=== PATIENT | male | born 1930 | race Hispanic/Latino ===

== ENCOUNTER 2017-05-12 21:37 | Emergency (ER) | payer MEDICARE, OTHER ==
[2017-05-12 21:52] VITALS: RESP 18; TEMP 97.5; O2SAT 99
--- NOTE | 2017-05-12 22:50 | ED PDOC ---
Arrival/HPI - General Time Seen by Provider: 05/12/17 21:53 Historian: Patient, Spouse - History of Present Illness Narrative History of Present Illness (Text): you were treated in the ED today for having parkinson's, having progressive forgetfulness, and you got out of the house and got lost and brought by the authorities and you were otherwise without any head injury/neck pain/fever/ nausea/vomiting/headache/dizziness/difficulty breathing/chest pain/abdomen pain/ numbness/tingling/loss of limb function/thoughts to harm yourself or others or hallucinations. you were sitting up, comfortable, alert/oriented to your baseline of name/location but not year which your /family confirmed, good strength/sensation, no abdomen tenderness, pink skin, no fever temp 97.5, stable heart rate 80, stable breathing rate 18, excellent oxygen level 99% room air, elevated blood pressure 147/78 which we recommend followup primary care 2- 3 days repeat and determine further treatment, observation done in the ED, counselled to complete a labwork-up, radiology work-up, ECG but you and your family wanted to go home and cautioned for missed diagnosis/complications/ but you stated you will followup with your primary care physician 2 days, and you went home with and family. 1. recommend followup primary care 1-2 days to determine further care, referral to neurology clinic. 2. if any worsening pain, fever, chills, nausea, vomiting, any medical condition then return to the ED. 05/12/17 22:50 05/12/17 22:50 Time/Duration: 1-3 hours Symptom Onset: Gradual Symptom Course: Improving Activities at Onset: Rest Context: Walking Past Medical History - Provider Review Nursing Documentation Reviewed: Yes - Travel History Have you recently traveled outside [place] w/in the past 3 mons?: No Family/Social History - Physician Review Nursing Documentation Reviewed: Yes Family/Social History: No Known Family HX Review of Systems - Review of Systems Constitutional: Normal Eyes: Normal ENT: Normal Respiratory: Normal Cardiovascular: Normal Gastrointestinal: Normal Genitourinary Male: Normal Musculoskeletal: Normal Skin: Normal Neurological: Other (forgetfullness) Endocrine: Normal Hemo/Lymphatic: Normal Psychiatric: Normal Physical Exam Vital Signs Reviewed: Yes Vital Signs Temp Pulse Resp BP Pulse Ox 05/12/17 21:51 97.5 F L 80 18 147/70 99 Temperature: Afebrile Blood Pressure: Hypertensive Pulse: Regular Respiratory Rate: Normal Appearance: Positive for: Well-Appearing, Non-Toxic, Comfortable Pain Distress: None Mental Status: Positive for: other (alert to name/location but stated year [birth year] and family stated this is baseline) - Systems Exam Head: Present: Atraumatic, Normocephalic Pupils: Present: PERRL Extroacular Muscles: Present: EOMI Conjunctiva: Present: Normal Ears: Present: Normal Mouth: Present: Moist Mucous Membranes Pharnyx: Present: Normal Nose (External): Present: Atraumatic Nose (Internal): Present: Normal Inspection Neck: Present: Normal Range of Motion, Other Respiratory/Chest: Present: Clear to Auscultation, Good Air Exchange Cardiovascular: Present: Regular Rate and Rhythm Abdomen: No: Tenderness, Distention, Normal Bowel Sounds, Peritoneal Signs, Rebound, Guarding, McBurney's Point Tender, Rovsing's Sign Present, Hernias, Feeding Tubes, Ostomy Tubes, Mass/Organomegaly, Scars, Other Back: Present: Normal Inspection, Other (no c-t-l spinal or paraspinal tenderness) Upper Extremity: Present: Normal Inspection Lower Extremity: Present: Normal Inspection Neurological: Present: GCS=15, CN II-XII Intact, Speech Normal, Motor Func Grossly Intact Skin: Present: Warm, Normal Color Psychiatric: Present: Alert, Normal Insight, Normal Concentration, Other ( baseline mental status) Medical Decision Making ED Course and Treatment: you were treated in the ED today for having parkinson's, having progressive forgetfulness, and you got out of the house and got lost and brought by the authorities and you were otherwise without any head injury/neck pain/fever/ nausea/vomiting/headache/dizziness/difficulty breathing/chest pain/abdomen pain/ numbness/tingling/loss of limb function/thoughts to harm yourself or others or hallucinations. you were sitting up, comfortable, alert/oriented to your baseline of name/location but not year which your /family confirmed, good strength/sensation, no abdomen tenderness, laughing/joking with family, pink skin, no fever temp 97.5, stable heart rate 80, stable breathing rate 18, excellent oxygen level 99% room air, elevated blood pressure 147/78 which we recommend followup primary care 2-3 days repeat and determine further treatment , observation done in the ED, counselled to complete a labwork-up, radiology work-up, ECG but you and your family wanted to go home and cautioned for missed diagnosis/complications/ but you stated you will followup with your primary care physician 2 days, and you went home with and family. 1. recommend followup primary care 1-2 days to determine further care, referral to neurology clinic. 2. if any worsening pain, fever, chills, nausea, vomiting, any medical condition then return to the ED. 05/12/17 22:55 Reassessment Condition: Improved Disposition/Present on Arrival - Present on Arrival Any Indicators Present on Arrival: No - Disposition Have Diagnosis and Disposition been Completed?: Yes Diagnosis: Forgetfulness Disposition: HOME/ ROUTINE Disposition Time: 22:56 Patient Plan: Discharge Condition: IMPROVED Additional Instructions: you were treated in the ED today for having parkinson's, having progressive forgetfulness, and you got out of the house and got lost and brought by the authorities and you were otherwise without any head injury/neck pain/fever/ nausea/vomiting/headache/dizziness/difficulty breathing/chest pain/abdomen pain/ numbness/tingling/loss of limb function/thoughts to harm yourself or others or hallucinations. you were sitting up, comfortable, alert/oriented to your baseline of name/location but not year which your /family confirmed, good strength/sensation, no abdomen tenderness, laughing/joking with family, pink skin, no fever temp 97.5, stable heart rate 80, stable breathing rate 18, excellent oxygen level 99% room air, elevated blood pressure 147/78 which we recommend followup primary care 2-3 days repeat and determine further treatment , observation done in the ED, counselled to complete a labwork-up, radiology work-up, ECG but you and your family wanted to go home and cautioned for missed diagnosis/complications/ but you stated you will followup with your primary care physician 2 days, and you went home with and family. 1. recommend followup primary care 1-2 days to determine further care, referral to neurology clinic. 2. if any worsening pain, fever, chills, nausea, vomiting, any medical condition then return to the ED. Referrals: Silvia Oshea, [Primary Care Provider] - Follow up with primary
[2017-05-13 03:45] VITALS: BP 137/70; PULSE 78
== END 2017-05-12 23:15 | disposition home or self-care (01) ==
LOC: ED 21:37
DX: R41.82 Altered mental status, unspecified (principal); G20 Parkinson's disease

== ENCOUNTER 2017-09-28 09:06 | Observation (INO) | payer MEDICARE, OTHER ==
[2017-09-28 09:09] VITALS: BMI 20.3
[2017-09-28] MEDS ORDERED: Sodium Chloride 0.9% 1,000 ML IV STA (09:35)
--- NOTE | 2017-09-28 09:51 | ED PDOC ---
Arrival/HPI - General Historian: Patient - History of Present Illness Time/Duration: < week Symptom Onset: Gradual Symptom Course: Unchanged Context: Home - General Chief Complaint: Weakness/Neurological Deficit Time Seen by Provider: 09/28/17 09:07 - History of Present Illness Narrative History of Present Illness (Text): 09/28/17 09:33 Pt is an 86 yo M with PMH of HTN, CAD s/p 2 stents, hypothyroidism, Parkinson's , dementia, DM, and urinary incontinence sent to ED by PMD for lethargy. Patient is poor historian and only oriented to self. Patient's at bedside provided history. She states that over the 4-5 days he has had poor urine output. PMD was contacted and patient was prescribed ciprofloxacin, which he completed, but symptoms did not resolve. At baseline, patient is able to ambulate and converse with some limitations. However, patient has been less talkative over the last few days. ROS limited due to patient's current mental status. PMD: Nitin Singer) Past Medical History - Provider Review Nursing Documentation Reviewed: Yes - Infectious Disease Hx of Infectious Diseases: None - Cardiac Hx Cardiac Disorders: Yes Hx Hypertension: Yes - Pulmonary Hx Respiratory Disorders: No - Neurological Hx Neurological Disorder: Yes Hx Parkinson's Disease: Yes - HEENT Hx HEENT Disorder: No - Renal Hx Renal Disorder: No - Endocrine/Metabolic Hx Endocrine Disorders: Yes Hx Diabetes Mellitus Type 2: Yes - Hematological/Oncological Hx Blood Disorders: No - Integumentary Hx Dermatological Disorder: No - Musculoskeletal/Rheumatological Hx Musculoskeletal Disorders: Yes Hx Falls: Yes Hx Unsteady Gait: Yes - Gastrointestinal Hx Gastrointestinal Disorders: Yes Hx Gall Bladder Disease: Yes - Genitourinary/Gynecological Hx Genitourinary Disorders: Yes Hx Urinary Tract Infection: Yes - Psychiatric Hx Psychophysiologic Disorder: No Hx Substance Use: No - Surgical History Hx Cholecystectomy: Yes Family/Social History - Physician Review Nursing Documentation Reviewed: Yes Family/Social History: No Known Family HX Smoking Status: Unknown If Ever Smoked Hx Alcohol Use: No Hx Substance Use: No Allergies/Home Meds Allergies/Adverse Reactions: Allergies No Known Allergies Allergy (Verified 09/28/17 09:24) Home Medications: Home Meds Medication Instructions Recorded Confirmed Aspirin [Aspirin Chewable] 81 mg PO DAILY 09/28/17 09/28/17 Carbidopa/Levodopa 1 tab PO TID 09/28/17 09/28/17 [Carbidopa-Levodopa 25-100 Tab] Clonazepam 0.5 mg PO BID 09/28/17 09/28/17 Donepezil [Aricept] 10 mg PO DAILY 09/28/17 09/28/17 Haloperidol [Haldol] 0.5 mg PO DAILY 09/28/17 09/28/17 Levothyroxine [Synthroid] 0.075 mg PO DAILY 09/28/17 09/28/17 Losartan [Cozaar] 50 mg PO DAILY 09/28/17 09/28/17 Memantine [Namenda] 10 mg PO BID 09/28/17 09/28/17 Omeprazole Magnesium [Prilosec] 20 mg PO DAILY 09/28/17 09/28/17 Oxybutynin [Oxybutynin Chloride] 5 mg PO BID 09/28/17 09/28/17 Tamsulosin [Flomax] 0.4 mg PO DAILY 09/28/17 09/28/17 metFORMIN [glucOPHAGE] 500 mg PO BID 09/28/17 09/28/17 Review of Systems - Review of Systems Systems not reviewed;Unavailable: Altered Mental Status Physical Exam - Physical Exam Physical Exam Limitations: Altered Mental Status Vital Signs Reviewed: Yes Temperature: Afebrile Blood Pressure: Normal Pulse: Regular Respiratory Rate: Normal Appearance: Positive for: Ill-Appearing, Cachectic Pain Distress: None Mental Status: Positive for: Confused, Lethargic - Systems Exam Head: Present: Atraumatic, Normocephalic Conjunctiva: Present: Normal Mouth: No: Moist Mucous Membranes (dry) Neck: Present: Trachea Midline. No: MIDLINE TENDERNESS, Paraspinal Tenderness Respiratory/Chest: Present: Clear to Auscultation, Good Air Exchange. No: Respiratory Distress, Accessory Muscle Use, Wheezes, Rales, Rhonchi Cardiovascular: Present: Regular Rate and Rhythm, Normal S1, S2. No: Murmurs Abdomen: No: Tenderness, Distention, Peritoneal Signs, Rebound, Guarding Back: Present: Normal Inspection Upper Extremity: Present: Normal Inspection. No: Cyanosis, Edema Lower Extremity: Present: Normal Inspection. No: Edema Neurological: No: GCS=15 (12), Speech Normal Skin: Present: Warm, Dry, Normal Color, Other (poor skin turgor). No: Rashes Psychiatric: Present: Alert, Normal Insight, Normal Concentration. No: Oriented x 3 (to self only) Vital Signs Temp Pulse Resp BP Pulse Ox 09/28/17 12:22 63 16 113/69 99 09/28/17 09:18 98 F 66 18 127/63 97 Medical Decision Making ED Course and Treatment: 09/28/17 09:54 86 yo M presents with lethargy. Plan: - CBC, CMP - Coags - Cardiac ISO - Cultures - VBG shock - UA - EKG - CXR - Head CT - IVF - Reassess and disposition 09/28/17 09:55 EKG reviewed shows rate of 66, sinus rhythm with 1st degree AV block. 09/28/17 10:22 Chest X-ray Impression: Mild bibasilar atelectasis. 09/28/17 11:[address] without contrast Impression: No acute intracranial hemorrhage. Mild chronic white matter ischemic changes. Note that the possibility of a small hyperacute infarct cannot be excluded. Clinical correlation recommended. Moderate central volume loss. Labwork and imaging grossly normal. Case discussed with Dr. Griffin, who requests overnight observation under his service due to altered mental status. Patient admitted for observation to med/surg. (Nitin Nicolas) 09/28/17 14:31 pts sent in by pmd for eval for ams. labs ct neg. ua neg. pmd requests obs. vitals stable pt dni dnr (Michael Braun) - Lab Interpretations Lab Results: 09/28/17 10:00 09/28/17 10:00 Lab Results 09/28/17 10:00: pO2 42, VBG pH 7.34, VBG pCO2 60.0, VBG HCO3 32.4 H, VBG Total CO2 34.2 H, VBG O2 Sat (Calc) 83.4 H, VBG Base Excess 4.8 H, VBG Potassium 3.7, Sodium 140.0, Chloride 105.0, Glucose 94, Lactate 0.9, FiO2 21.0, Venous Blood Potassium 3.7 09/28/17 10:00: PT 14.4 H, INR 1.25 H, APTT 31.5 09/28/17 10:00: Sodium 143, Chloride 104, Potassium 3.9, Carbon Dioxide 30, Anion Gap 13, BUN 15, Creatinine 0.8, Est GFR ( Amer) > 60, Est GFR (Non- Af Amer) > 60, Random Glucose 96, Calcium 9.1, Magnesium 2.1, Total Bilirubin 0.9, AST 20, ALT 15, Alkaline Phosphatase 55, Lactate Dehydrogenase 327 L, Total Creatine Kinase 40, Troponin I < 0.01, Total Protein 6.3, Albumin 3.6, Globulin 2.7, Albumin/Globulin Ratio 1.3 09/28/17 10:00: WBC 6.3, RBC 4.26, Hgb 13.0 L, Hct 39.6 L, MCV 93.0, MCH 30.5, MCHC 32.8, RDW 14.0, Plt Count 200, MPV 8.8, Gran % 66.2, Lymph % (Auto) 24.1, [place] % (Auto) 7.0 H, Eos % (Auto) 2.5, Baso % (Auto) 0.2, Gran # 4.17, Lymph # ( Auto) 1.5, [place] # (Auto) 0.4, Eos # (Auto) 0.2, Baso # (Auto) 0.01 09/28/17 09:33: POC Glucose (mg/dL) 90 09/28/17 09:26: Urine Color Yellow, Urine Appearance Clear, Urine pH 6.0, Ur Specific [place] 1.025, Urine Protein Trace H, Urine Glucose (UA) Negative, Urine Ketones Trace H, Urine Blood Negative, Urine Nitrate Negative, Urine Bilirubin Negative, Urine Urobilinogen 1.0 H, Ur Leukocyte Esterase Negative, Urine RBC Negative, Urine WBC 2 - 5, Ur Epithelial Cells 3 - 4, Urine Bacteria Few - RAD Interpretation Radiology Orders: 09/28/17 09:28 CHEST PORTABLE [RAD] Stat 09/28/17 09:36 HEAD W/O CONTRAST [CT] Stat - Medication Orders Current Medication Orders: Aspirin (Aspirin Chewable) 81 mg PO DAILY [facility] Carbidopa/Levodopa (Sinemet) 1 tab PO 0800,1000,1400,1600 [facility] Last Admin: 09/28/17 13:40 Dose: 1 tab Donepezil HCl (Aricept) 10 mg PO HS [facility] Sodium Chloride (Sodium Chloride 0.9%) 1,000 mls @ 60 mls/hr IV .[id number] [facility] Last Admin: 09/28/17 13:40 Dose: 60 mls/hr eMAR Start Stop Document 09/28/17 13:40 RV (Rec: 09/28/17 13:40 RV [id number]) Intravenous Solution Start Date 09/28/17 Start Time 13:40 Levothyroxine Sodium (Synthroid) 75 mcg PO 0600 [facility] Losartan Potassium (Cozaar) 50 mg PO DAILY [facility] Memantine (Namenda) 10 mg PO BID [facility] Metformin HCl (Glucophage) 500 mg PO BID [facility] Pantoprazole Sodium (Protonix Inj) 40 mg IVP DAILY [facility] Tamsulosin HCl (Flomax) 0.4 mg PO DAILY [facility] Discontinued Medications Carbidopa/Levodopa (Sinemet) 1 tab PO STAT STA Stop: 09/28/17 11:14 Last Admin: 09/28/17 11:51 Dose: 1 tab Sodium Chloride (Sodium Chloride 0.9%) 1,000 mls @ 999 mls/hr IV .Q1H1M STA Stop: 09/28/17 10:35 Last Admin: 09/28/17 09:47 Dose: 999 mls/hr eMAR Start Stop Document 09/28/17 09:47 KIN (Rec: 09/28/17 09:49 [id number] Intravenous Solution Start Date 09/28/17 Start Time 09:48 End Date 09/28/17 End time 10:48 Total Infusion Time 60 Sodium Chloride (Sodium Chloride 0.9%) 1,000 mls @ 100 mls/hr IV .Q10H [facility] Last Admin: 09/28/17 11:52 Dose: 100 mls/hr eMAR Start Stop Document 09/28/17 11:52 KIN (Rec: 09/28/17 11:52 KIN [id number]) Intravenous Solution Start Date 09/28/17 Start Time 11:52 Disposition/Present on Arrival - Present on Arrival Any Indicators Present on Arrival: No History of DVT/PE: No History of Uncontrolled Diabetes: No Urinary Catheter: No History of Decub. Ulcer: No History Surgical Site Infection Following: None - Disposition Have Diagnosis and Disposition been Completed?: Yes Disposition Time: 12:11 Patient Plan: Admission - Disposition Diagnosis: Altered mental status Disposition: HOSPITALIZED Condition: STABLE
[2017-09-28 10:13] LABS: BASO # 0.01 K/mm3 (0.0-2.0); BASO % 0.2 % (0.0-3.0); EOS # 0.2 (0.0-0.7); EOS % 2.5 % (1.5-5.0); GRAN # 4.17 (1.4-6.5); GRAN % 66.2 % (50.0-68.0); LYMPH # 1.5 (1.2-3.4); LYMPH % 24.1 % (22.0-35.0); MEAN CORPUSCULAR HEMOGLOBIN 30.5 pg (25.0-35.0); MEAN CORPUSCULAR HGB CONC 32.8 g/dl (31.0-37.0); MEAN PLATELET VOLUME 8.8 fl (7.0-11.0); MONO # 0.4 (0.1-0.6); RBC 4.26 10^6/uL (3.5-6.1); WHITE BLOOD COUNT 6.3 10^3/ul (4.5-11.0)
[2017-09-28 10:15] LABS: VENOUS BLOOD GAS BASE EXCESS 4.8 mmol/L (0.0-2.0); VENOUS BLOOD GAS PO2 42 mm/Hg (30-55); VENOUS BLOOD PH 7.34 (7.32-7.43)
--- NOTE | 2017-09-28 10:19 | RAD ---
HISTORY: AMS COMPARISON: No prior. FINDINGS: LUNGS: Mild bibasilar atelectasis PLEURA: No significant pleural effusion identified, no pneumothorax apparent. CARDIOVASCULAR: Normal. OSSEOUS STRUCTURES: Scoliotic deformity of the mid thoracic and thoracolumbar junction. The Posterior fixation hardware over the upper lumbar spine is present. VISUALIZED UPPER ABDOMEN: Normal. OTHER FINDINGS: None. IMPRESSION: Mild bibasilar atelectasis.
[2017-09-28 10:23] LABS: ALB/GLOB RATIO 1.3 (1.1-1.8); ALBUMIN 3.6 g/dL (3.0-4.8); ALT/SGPT 15 U/L (7-56); AST/SGOT 20 U/L (17-59); BLOOD UREA NITROGEN 15 mg/dL (7-21); CALCIUM 9.1 mg/dL (8.4-10.5); GFR AFRICAN-AMERICAN > 60; GFR NON-AFRICAN AMERICAN > 60
[2017-09-28 10:24] LABS: INR 1.25 (0.93-1.08); PARTIAL THROMBOPLASTIN TIME 31.5 Seconds (25.1-36.5); PROTHROMBIN TIME 14.4 SECONDS (9.4-12.5)
[2017-09-28 10:28] LABS: URINE BILIRUBIN NEGATIVE (NEGATIVE); URINE BLOOD NEGATIVE (NEGATIVE); URINE GLUCOSE (UA) NEGATIVE (NEGATIVE); URINE LEUKOCYTE ESTERASE NEGATIVE Leu/uL (NEGATIVE); URINE PROTEIN TRACE mg/dL (<30 mg/dL)
[2017-09-28 10:33] LABS: URINE APPEARANCE CLEAR (CLEAR); URINE COLOR YELLOW (YELLOW)
[2017-09-28 10:34] LABS: TROPONIN I < 0.01 ng/mL
[2017-09-28 10:35] LABS: URINE BACTERIA FEW (NEG); URINE RBC NEGATIVE /hpf (0-2)
--- NOTE | 2017-09-28 11:41 | CT ---
PROCEDURE: CT HEAD WITHOUT CONTRAST. HISTORY: AMS COMPARISON: Comparison made with prior MRI of the brain 10/06/2013. TECHNIQUE: Axial computed tomography images were obtained through the head/brain without intravenous contrast. Radiation dose: Total exam DLP = 1007.15 MGy-cm. This CT exam was performed using one or more of the following dose reduction techniques: Automated exposure control, adjustment of the mA and/or kV according to patient size, and/or use of iterative reconstruction technique. FINDINGS: HEMORRHAGE: No acute parenchymal, subarachnoid or extra-axial hemorrhage. BRAIN: Mild chronic periventricular white matter ischemic changes seen extending peripherally into the deep and subcortical white matter both cerebral hemispheres. Note that the possibility of a small hyperacute infarct cannot completely excluded. . There may also be a few tiny chronic bilateral basal nuclei lacunar type infarcts. Moderate central volume loss. VENTRICLES: No obstructive hydrocephalus. CALVARIUM: There are no acute calvarial fractures. PARANASAL SINUSES: Unremarkable as visualized. No significant inflammatory changes. MASTOID AIR CELLS: Left mastoid air complex is sclerotic/underpneumatized. Residual left-sided mastoid air cells are opacified. . OTHER FINDINGS: None. IMPRESSION: No acute intracranial hemorrhage. Mild chronic white matter ischemic changes. . Note that the possibility of a small hyperacute infarct cannot be excluded. Clinical correlation recommended. Moderate central volume loss
[2017-09-28] MEDS ORDERED: Sodium Chloride 0.9% 1,000 ML IV SCH ×2 (11:45→13:14)
[2017-09-28] MEDS ORDERED: Carbidopa/Levodopa 25/250 PO SCH (14:00)
[2017-09-28 16:14] VITALS: PULSE 74
[2017-09-28] MEDS ORDERED: Pneumococcal 23-Valent Vaccine IM ONE (17:10)
--- NOTE | 2017-09-28 18:57 | CARD ---
APPROVED REPORT EKG Measurement Heart [id number] CT [id number] <Conclusion> Sinus rhythm with 1st degree AV block Otherwise normal ECG
[2017-09-29] MEDS ORDERED: Levothyroxine 75 MCG TAB PO SCH (06:00)
[2017-09-29 06:56] LABS: BLOOD UREA NITROGEN 11 mg/dL (7-21); CALCIUM 8.6 mg/dL (8.4-10.5); GFR AFRICAN-AMERICAN > 60; GFR NON-AFRICAN AMERICAN > 60
[2017-09-29 08:03] LABS: BASO # 0.01 K/mm3 (0.0-2.0); BASO % 0.1 % (0.0-3.0); GRAN # 7.06 (1.4-6.5); GRAN % 84.7 % (50.0-68.0); HEMOGLOBIN 13.2 g/dL (14.0-18.0); LYMPH # 0.6 (1.2-3.4); LYMPH % 7.2 % (22.0-35.0); MEAN CELL VOLUME 91.9 fl (80.0-105.0); MEAN CORPUSCULAR HEMOGLOBIN 30.6 pg (25.0-35.0); MEAN CORPUSCULAR HGB CONC 33.2 g/dl (31.0-37.0); MEAN PLATELET VOLUME 9.1 fl (7.0-11.0); MONO # 0.7 (0.1-0.6); RBC 4.32 10^6/uL (3.5-6.1); RED CELL DISTRIBUTION WIDTH 13.6 % (11.5-14.5); WHITE BLOOD COUNT 8.3 10^3/ul (4.5-11.0)
[2017-09-29 10:01] VITALS: BP 118/70
[2017-09-29 13:21] VITALS: RESP 18; TEMP 97.5; O2SAT 98
--- NOTE | 2017-10-01 02:35 | HP ---
HISTORY OF PRESENT ILLNESS: This is an 86-year-old man I have known for more than 30 years, with a history of severe Parkinson disease and [id number] dementia, who was home cared for by his and 2 health aides. The patient's called me on the morning of admission, saying that he was not in his usual self, he was not talkative, more lethargic, concerned for dehydration and/or infection, he was sent to the emergency room. Workup in the emergency room was done and patient was admitted for mild dehydration and altered mental status as the reports he had little to no p.o. intake of food or fluids for the last 24 hours. PAST MEDICAL HISTORY: Significant for hypertension since 1988, diabetes since 2008, hyperlipidemia treated since 2006. There is no history of tuberculosis, asthma, seizures, gout, emphysema, stroke or TIAs. He had an MD in 2006 and a history of coronary artery disease, but no history of any kinds of cancer. He was diagnosed with hypothyroidism in 1968, developed exertional tremor in the last several years, then diagnosed with Parkinson's. PAST SURGICAL HISTORY: Significant for right partial thyroidectomy for goiter in 1968. He had an MD and PTCA in 2006. He had a lumbar spine fusion in 1993 at [facility] ([facility] 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 He had a colonoscopy in 2004 and 2010, endoscopy in 2004, and cardiac catheterization in 2006. ALLERGIES: HE IS ALLERGIC TO VASOTEC AND PREVPAC WHICH GIVE HIM A RASH. SOCIAL HISTORY: He does not smoke, never did; does not alcohol, only drinks decaf coffee. He gets the flu shot yearly and his Pneumovax 23 was in 2009. He is , with one son and two daughters, 6 grandchildren . He retired from [employer] in [place] in 1988. FAMILY HISTORY: His mother at 65, his father when the patient is only 3 months old in 1929. He is fifth of 5 siblings and he is the last survivor. Problem list in the office shows hypertension, diabetes and Parkinson disease. His . His peace officer is Dr. Chinchilla. HOME MEDICATIONS: Include levothyroxine, haloperidol, donepezil, clonazepam, Sinemet, oxybutynin, omeprazole, Namenda, Cozaar, metformin, tamsulosin and aspirin. REVIEW OF SYSTEMS: Not obtainable because of his Parkinson disease and moderate dementia on top of this acute admission for altered mental status, not talking and dehydration. PHYSICAL EXAMINATION: GENERAL: The patient was seen this Sunday morning in the emergency room, slot #2, with his at the bedside. He is lethargic and groggy, but recognized me when aroused, answers simple yes/no answers which is off from his baseline. HEENT: Conjunctivae are pink. Mucous membranes are dry. NECK: Supple without masses. Thyroid is not palpable. There is no JVD. No carotid bruits. LUNGS: Show good aeration right and left. HEART: Not tachycardic. ABDOMEN: Soft, nontender. EXTREMITIES: Show no edema. NEUROLOGIC: Show no focal motor deficit. IMPRESSION: 1. Altered mental status, rule out dehydration, rule out primary neurologic event, rule out medication related lethargy. 2. Mild dehydration with dry mucous membranes and poor p.o. intake. 3. History of hypertension. 4. History of diabetes. 5. Coronary artery disease. 6. Parkinson disease. PLAN: Patient will be admitted for overnight observation. IV fluids will continue as he seems to be improving during his brief stay in the emergency room, and reassess the situation in the morning and hopefully with clinical improvement, he will be ready for discharge to home soon. Luan Griffin MD
--- NOTE | 2017-10-01 11:59 | DS ---
HOSPITAL COURSE: This is an 86-year-old man I have known for more than 30 years with regards to the Parkinson disease and moderate advanced dementia. He presented to the Emergency Room on Sunday morning with altered mental status, not eating or drinking for approximately 24 hours and becoming more lethargic and obtunded. In the Emergency Room, he was clinically dry and admitted for overnight observation. His labs were essentially unremarkable. X-rays from the were equally unremarkable. The patient was treated with IV fluids. He was constipated. In the differential diagnosis, there was concern of medications taken as he did have haloperidol and clonazepam at home, both of which had worked unreasonably well for his intermittent episodes of restlessness and agitation, those medicines were held, fluids were given. The patient became a bit restless at night so Seroquel 12.5 mg was given to prevent some relief as well as 1:1 sitter to stay with him, but following morning Sunday on 09/29/2017, he had markedly improved. When I came to the room, he was much more awake, much more alert, recognized me, a bit more talkative although at times, confused and this is near his baseline because of the underlying Parkinson's and mild dementia. He was ready for discharge to home. I spoke with his , they will make arrangements to come and bring him home and he is discharged. FINAL DISCHARGE DIAGNOSES: 1. Altered mental status due to suspected medication reaction. 2. Dehydration. 3. Constipation. 4. Hypertension. 5. Diabetes. 6. Coronary artery disease. 7. Hypothyroidism. 8. Parkinson disease. PLAN: Discharge to home with prescription for quetiapine (Seroquel), was called to his pharmacy. Medications were discussed with family, they were asked to hold off on benzodiazepines and haloperidol and see if the quetiapine would be optimal for him. I will see him either in the office or on a home visit within the following week. Luan Griffin MD
== END 2017-09-29 13:31 | disposition home or self-care (01) ==
LOC: ED 09:06 → ERH 11:43 → 3RSO 12:53 → 3RNO 16:06
PROVIDERS: ADMIT Internal Medicine; ATTEND Internal Medicine
DX: E86.0 Dehydration (principal); I25.10 Atherosclerotic heart disease of native coronary artery without angina pectoris; I10 Essential (primary) hypertension; E11.9 Type 2 diabetes mellitus without complications; G20 Parkinson's disease; F02.80 Dementia in other diseases classified elsewhere, unspecified severity, without behavioral disturbance, psychotic disturbance, mood disturbance, and anxiety; K59.00 Constipation, unspecified; E03.9 Hypothyroidism, unspecified; E78.5 Hyperlipidemia, unspecified; I25.2 Old myocardial infarction; Z95.5 Presence of coronary angioplasty implant and graft
CPT/HCPCS: 36415; 70450; 71045; 80048; 80053; 81001; 82550; 82803; 82948; 83615; 83735; 84484; 85025; 85610; 85730; 87040; 93005; 96361; 96374; 99285; C9113; G0378; J7030